=== PATIENT | female | born 1990 | race Caucasian/White ===

== ENCOUNTER 2017-06-15 14:33 | Emergency (ER) | payer OTHER ==
[~2017-06-15] VITALS: Ht 167.6 cm; Wt 99.5 kg
[2017-06-15 14:41] VITALS: TEMP 37.1; Ht 167.6 cm; Wt 99.5 kg
[2017-06-15] MEDS ORDERED: MoRPHine SULFATE 4 MG/ML 1 ML CARP\\VIAL IV STA (14:53)
[2017-06-15] MEDS ORDERED: SODIUM CHLORIDE 0.9% 1000ML 1,000 ML IV STA (14:53)
[2017-06-15] MEDS ORDERED: ONDANSETRON INJ 2 MG/ML 2 ML VIAL IV STA (14:53)
[2017-06-15] MEDS ORDERED: OPTIRAY 320 IV PRN (15:00)
[2017-06-15 15:32] LABS: URINE APPEARANCE CLEAR (CLEAR); URINE BILIRUBIN NEG (NEG); URINE COLOR YELLOW; URINE EPITHELIAL CELL AUTO >30 /lpf (0-5); URINE NITRITE NEG (NEG); URINE SPECIFIC GRAVITY 1.009 (1.000-1.030); UROBILINOGEN NEG (NEG)
[2017-06-15 15:33] LABS: BASO % 0.2 %; BASO ABS # 0.02 K/uL (0-0.2); COMPLETE YES; EOS % 0.5 %; HEMATOCRIT 41.5 % (37-47); IG% 0.2 %; LYMPH % 19.1 %; LYMPH ABS # 2.06 K/uL (1.2-3.4); MEAN CELL VOLUME 87.2 fL (80-100); MEAN CORPUSCULAR HEMOGLOBIN 29.2 pg (25-34); MEAN CORPUSCULAR HGB CONC 33.5 g/dl (32-36); MEAN PLATELET VOLUME 8.6 fL (7.4-10.4); MONO % 9.8 %; NEUT % 70.2 %; PLATELET COUNT 305 K/uL (130-400); RED BLOOD COUNT 4.76 M/uL (4.2-5.4); WHITE BLOOD COUNT 10.81 K/uL (4.8-10.8)
[2017-06-15 15:35] LABS: ISTAT CREATININE 0.7 mg/dl (0.6-1.3); ISTAT HEMOGLOBIN 13.9 g/dl (12.0-16.0); ISTAT IONIZED CALCIUM 1.29 mmol/l (1.12-1.32)
[2017-06-15 15:39] LABS: MANUAL MICROSCOPIC REQUIRED? NO; REVIEW REQ? NO
[2017-06-15 15:41] LABS: BUN/CREATININE RATIO 9.9 (10-20); CALCIUM 9.5 mg/dl (8.5-10.1); CREATININE 0.69 mg/dl (0.60-1.20)
[2017-06-15] MEDS ORDERED: LAMO200T38 PO (15:47)
[2017-06-15] MEDS ORDERED: LAMO25TA PO (15:47)
[2017-06-15 16:40] VITALS: O2SAT 100
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
[2017-06-15 17:43] VITALS: BP 139/91; PULSE 82; O2SAT 99
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
== END 2017-06-15 17:43 | disposition home or self-care (01) ==
LOC: EDBD 14:33 → C.EDA 14:34
DX: T14.8XXA Other injury of unspecified body region, initial encounter (principal); V43.52XA Car driver injured in collision with other type car in traffic accident, initial encounter; F17.200 Nicotine dependence, unspecified, uncomplicated; Z87.828 Personal history of other (healed) physical injury and trauma; Z79.899 Other long term (current) drug therapy